=== PATIENT | male | born 1995 | race Hispanic/Latino ===

== ENCOUNTER 2018-02-17 07:20 | Emergency (ER) | payer SELFPAY ==
[2018-02-17] MEDS ORDERED: ALBUTEROL 2.5 MG/3 ML NEB SOL ONE (07:47)
[2018-02-17] MEDS ORDERED: IPRATROPIUM BROM 0.5MG/2.5ML ONE (07:47)
--- NOTE | 2018-02-17 08:35 | ER ---
Nurse's Notes [facility] Name: Naveen Brown Age: 22 yrs Sex: Male : 1995 Arrival Date: 02/17/2018 Time: 07:26 Bed 18 Private MD: None, None Diagnosis: Unspecified asthma with (acute) exacerbation Presentation: 02/17 07:31 Presenting complaint: Patient states: woke up this am with discomfort in chest and back ss with mild nausea. Pt reports that pain has eased, but is concerned if "anything is going on". Has also reportedly had congestion. Transition of care: patient was not received from another setting of care. Resp Distress? No respiratory distress is noted at this time. Onset of symptoms was February 17, 2018. Risk Assessment: Do you want to hurt yourself or someone else? Patient reports no desire to harm self or others. Initial Sepsis Screen:. Care prior to arrival: None. 07:31 Method Of Arrival: Ambulatory ss 07:31 Acuity: JEN 3 ss Historical: - Allergies: 07:33 No Known Allergies; ss - Home Meds: 07:33 Albuterol Inhl [Active]; ss - PMHx: 07:33 Asthma; ss - PSHx: 07:33 oral sx; ss - Immunization history:: Adult Immunizations up to date. - Social history:: Smoking status: Patient/guardian denies using tobacco. - Ebola Screening: : Patient denies exposure to infectious person Patient denies travel to an Ebola-affected area in the 21 days before illness onset. Screenin:35 Abuse screen: Denies threats or abuse. Nutritional screening: No deficits noted. em Tuberculosis screening: No symptoms or risk factors identified. Fall Risk None identified. Assessment: 07:35 General: Appears in no apparent distress. comfortable, Behavior is calm, cooperative, em Denies fever. Pain: Complains of pain in anterior aspect of right upper chest and anterior aspect of left upper chest Pain currently is 2 out of 10 on a pain scale. Neuro: Level of Consciousness is awake, alert, obeys commands, Oriented to person, place, time, situation. Cardiovascular: Heart tones S1 S2 present Capillary refill < 3 seconds Patient's skin is warm and dry. Respiratory: Reports shortness of breath cough that is pain with cough Airway is patent Respiratory effort is even, unlabored, Respiratory pattern is regular, symmetrical, Breath sounds with wheezes bilaterally. GI: Abdomen is Reports nausea, Patient currently denies vomiting. : No signs and/or symptoms were reported regarding the genitourinary system. Derm: Skin is intact, is healthy with good turgor, Skin is pink, warm \\T\\ dry. Musculoskeletal: Range of motion: intact in all extremities. 07:40 General: The previous assessment is accurate, call light remains within reach. . ss 08:26 Reassessment: Patient appears in no apparent distress at this time. Patient and/or em family updated on plan of care and expected duration. Pain level reassessed. Patient is alert, oriented x 3, equal unlabored respirations, skin warm/dry/pink. Patient states feeling better. Patient states symptoms have improved. Vital Signs: 07:33 Weight 72.57 kg; Height 5 ft. 7 in. (170.18 cm); ss 07:33 BP 138 / 93; Pulse 90; Resp 16; Temp 97.8(O); Pulse Ox 100% on R/A; Pain 2/10; dh3 07:33 Body Mass Index 25.06 (72.57 kg, 170.18 cm) ED Course: 07:26 Patient arrived in ED. sb2 07:27 None, None is Private Physician. sb2 07:27 Alexandra Dunn FNP-C [facility]. kb 07:27 Ken Churchill MD is Attending Physician. kb 07:32 Triage completed. ss 07:33 Arm band placed on right wrist. ss 07:34 Case Lindo LVN is Primary Nurse. em 07:35 Patient has correct armband on for positive identification. Bed in low position. Call em light in reach. Adult w/ patient. Pulse ox on. NIBP on. 07:50 EKG done, by ED staff, reviewed by Alexandra JORDAN. dh3 08:05 Chest Pa And Lat (2 Views) XRAY In Process Unspecified. EDMS 08:42 No provider procedures requiring assistance completed. Patient did not have IV access em during this emergency room visit. Administered Medications: 07:39 Drug: DuoNeb (3:1) (2.5 mg - 0.5 mg) 3 ml Route: Nebulizer; em 08:18 Follow up: Response: No adverse reaction; Wheezing diminished em Outcome: 08:34 Discharge ordered by . iraj 08:42 Discharged to home ambulatory, with family. em 08:42 Condition: good 08:42 Discharge instructions given to patient, family, Instructed on discharge instructions, follow up and referral plans. medication usage, Demonstrated understanding of instructions, follow-up care, medications, Prescriptions given X 1. 08:43 Patient left the ED. em Signatures: Dispatcher [employer] EDIN Alexandra Dunn, NICK-C POULTRY SEXER-Case Daniel, REGISTERED NURSE TEACHER REGISTERED NURSE TEACHER em Coby Elizabeth, THIAGO RN Rosie Penn 3 Renae Brennan sb2 Corrections: (The following items were deleted from the chart) 07:33 07:31 Presenting complaint: Patient states: woke up this am with discomfort in chest ss and back with mild nausea. Pt reports that pain has eased, but is concerned if "anything is going on". 08:16 07:33 BP 138 / 93; Pulse 90bpm; Resp 16bpm; Pulse Ox 100% RA; dh3 dh3
--- NOTE | 2018-02-17 08:35 | EDPHYS ---
Physician Documentation [facility] Name: Naveen Brown Age: 22 yrs Sex: Male : 1995 Arrival Date: 02/17/2018 Time: 07:26 Bed 18 Private MD: None, None ED Physician Ken Churchill HPI: 02/17 08:27 This 22 yrs old Male presents to ER via Ambulatory with complaints of kb Congestion, Shortness Of Breath. 08:27 The patient has shortness of breath at rest, and the patient has a history of asthma. kb Onset: The symptoms/episode began/occurred this morning. Duration: The symptoms are continuous. The patient's shortness of breath is aggravated by nothing, is alleviated by nothing. Associated signs and symptoms: Pertinent positives: chest pain, Pertinent negatives: non-productive cough, productive cough, fever. Severity of symptoms: At their worst the symptoms were moderate in the emergency department the symptoms have improved moderately. The patient has not experienced similar symptoms in the past. The patient has not recently seen a physician. Pt states he has had congestion for a while, but started having shortness of breath and chest pain this morning. States his girlfriend has a cat and he is allergic to cat. Allergy symptoms have been getting worse. Also reports he is out of nebulizer solution. Symptoms have been getting better since onset. Historical: - Allergies: 07:33 No Known Allergies; ss - Home Meds: 07:33 Albuterol Inhl [Active]; ss - PMHx: 07:33 Asthma; ss - PSHx: 07:33 oral sx; ss - Immunization history:: Adult Immunizations up to date. - Social history:: Smoking status: Patient/guardian denies using tobacco. - Ebola Screening: : Patient denies exposure to infectious person Patient denies travel to an Ebola-affected area in the 21 days before illness onset. ROS: 08:26 Constitutional: Negative for fever, chills, and weight loss, ENT: Negative for injury, kb pain, and discharge, Neck: Negative for injury, pain, and swelling, Abdomen/GI: Negative for abdominal pain, nausea, vomiting, diarrhea, and constipation, MS/Extremity: Negative for injury and deformity, Skin: Negative for injury, rash, and discoloration, Neuro: Negative for headache, weakness, numbness, tingling, and seizure. 08:26 Cardiovascular: Positive for chest pain. 08:26 Respiratory: Positive for cough, wheezing, Negative for dyspnea on exertion, hemoptysis, orthopnea, pleurisy, shortness of breath, sputum production. Exam: 08:26 Constitutional: This is a well developed, well nourished patient who is awake, alert, kb and in no acute distress. Head/Face: Normocephalic, atraumatic. ENT: Nares patent. No nasal discharge, no septal abnormalities noted. Tympanic membranes are normal and external auditory canals are clear. Oropharynx with no redness, swelling, or masses, exudates, or evidence of obstruction, uvula midline. Mucous membranes moist. Neck: Trachea midline, no thyromegaly or masses palpated, and no cervical lymphadenopathy. Supple, full range of motion without nuchal rigidity, or vertebral point tenderness. No Meningismus. Chest/axilla: Normal chest wall appearance and motion. Nontender with no deformity. No lesions are appreciated. Cardiovascular: Regular rate and rhythm with a normal S1 and S2. No gallops, murmurs, or rubs. Normal PMI, no JVD. No pulse deficits. Abdomen/GI: Soft, non-tender, with normal bowel sounds. No distension or tympany. No guarding or rebound. No evidence of tenderness throughout. Skin: Warm, dry with normal turgor. Normal color with no rashes, no lesions, and no evidence of cellulitis. MS/ Extremity: Pulses equal, no cyanosis. Neurovascular intact. Full, normal range of motion. Neuro: Awake and alert, GCS 15, oriented to person, place, time, and situation. Cranial nerves II-XII grossly intact. Motor strength 5/5 in all extremities. Sensory grossly intact. Cerebellar exam normal. Normal gait. 08:26 Respiratory: the patient does not display signs of respiratory distress, Respirations: normal, Breath sounds: wheezing: expiratory that is mild, is scattered. Vital Signs: 07:33 Weight 72.57 kg; Height 5 ft. 7 in. (170.18 cm); ss 07:33 BP 138 / 93; Pulse 90; Resp 16; Temp 97.8(O); Pulse Ox 100% on R/A; Pain 2/10; dh3 07:33 Body Mass Index 25.06 (72.57 kg, 170.18 cm) ss MDM: 07:29 Patient medically screened. kb 08:25 Data reviewed: vital signs, nurses notes. Data interpreted: Pulse oximetry: on room air kb is 100 %. Interpretation: normal. Counseling: I had a detailed discussion with the patient and/or guardian regarding: the historical points, exam findings, and any diagnostic results supporting the discharge/admit diagnosis, radiology results, the need for outpatient follow up, a family practitioner, to return to the emergency department if symptoms worsen or persist or if there are any questions or concerns that arise at home. 08:31 ED course: Pt reports he is feeling better after treatment. States he still has some kb chest pain. Offered to do labs, but pt opted not to have them done. Will return for worsening symptoms. Father now present and reports they were cleaning the outside of the house a couple of days ago and he had the same pain due to repetitive motion of arms up and down. "We used muscles that we normally don't.". 02/17 07:33 Order name: Chest Pa And Lat (2 Views) XRAY kb 02/17 07:33 Order name: EKG; Complete Time: 07:34 kb 02/17 07:33 Order name: EKG - Nurse/Tech; Complete Time: 07:50 kb Administered Medications: 07:39 Drug: DuoNeb (3:1) (2.5 mg - 0.5 mg) 3 ml Route: Nebulizer; em 08:18 Follow up: Response: No adverse reaction; Wheezing diminished em Disposition: 02/17/18 08:34 Discharged to Home. Impression: Unspecified asthma with (acute) exacerbation. - Condition is Stable. - Discharge Instructions: Asthma, Adult, [id number]. - Prescriptions for Albuterol Sulfate 2.5 mg /3 mL (0.083 %) Inhalation Solution for Nebulization - inhale 1 unit by NEBULIZATION route every 8 hours As needed; 1 box. - Medication Reconciliation Form, Thank You Letter, Antibiotic Education, Prescription Opioid Use form. - Follow up: Emergency Department; When: As needed; Reason: Worsening of condition. Follow up: Private Physician; When: 2 - 3 days; Reason: Recheck today's complaints, Continuance of care, Re-evaluation by your physician. Addendum: 02/19/2018 10:20 Co-signature as Attending Physician, Ken Churchill MD. g s Signatures: Dispatcher [employer] EDAlexandra Catherine, BEHAVIOR INTERVENTIONIST-C BEHAVIOR INTERVENTIONIST-Ckb Case Lindo, CARBONIZER CARBONIZER Coby Lovelace, THIAGO RN Ken Lambert MD MD Corrections: (The following items were deleted from the chart) 02/17 08:43 08:34 02/17/2018 08:34 Discharged to Home. Impression: Unspecified asthma with (acute) em exacerbation. Condition is Stable. Forms are Medication Reconciliation Form, Thank You Letter, Antibiotic Education, Prescription Opioid Use. Follow up: Emergency Department; When: As needed; Reason: Worsening of condition. Follow up: Private Physician; When: 2 - 3 days; Reason: Recheck today's complaints, Continuance of care, Re-evaluation by your physician. kb
--- NOTE | 2018-02-17 10:56 | RAD REPORT ---
EXAM DESCRIPTION: RAD - Chest Pa And Lat (2 Views) - 02/17/2018 8:05 am CLINICAL HISTORY: DYSPNEA Chest pain. COMPARISON: No comparisons FINDINGS: Poorly defined left basilar lung markings are seen extending posteriorly, suspicious for d eveloping pneumonia. The heart is normal in size. No displaced fractures. IMPRESSION: Developing medial left lung base pneumonia is possible.
--- NOTE | 2018-02-17 16:26 | EKG ---
Test Date: 2018-02-17 Test Time: 07:43:20 Chemicals Fermentation Operator: KAVON MEASUREMENT RESULTS: Intervals: Rate: 93 [place]: 168 QRSD: 86 QT: 318 QTc: 395 [place]: P: 36 [place]: 168 QRS: 34 T: 32 INTERPRETIVE STATEMENTS: Normal sinus rhythm with sinus arrhythmia Normal ECG No previous ECG available for comparison Electronically Signed On 02-17-18 16:25:39 [employer] MEMBER by Julio Cole
== END 2018-02-17 08:43 | disposition home or self-care (01) ==
LOC: ER 07:20
DX: J45.909 Unspecified asthma, uncomplicated (principal)
CPT/HCPCS: 71046; 93005; 94640; 99284

== ENCOUNTER 2021-05-24 00:09 | Emergency (ER) | payer OTHER, SELFPAY ==
--- OUTSIDE RECORDS SUMMARY | 2021-05-24 00:11 | XMS REPORT | Continuity of Care Document ---
:1995 Author Organization [facility] t Address [address] [place] [address] [address] [place] [address] Care Team Providers Name Role Phone PCP, DOES NOT HAVE A Primary Care Physician Unavailable Gisella DAS Attending Clinician Unavailable Only, Db Test Attending Clinician Unavailable Suman ROMERO Attending Clinician SUMAN Attending Clinician Unavailable Doctor Unassigned, Name Attending Clinician Unavailable Payers Payer Name Policy Type Policy Number Effective Date Expiration Date S ource Problems This patient has no known problems. Allergies, Adverse Reactions, Alerts Allergy Allergy Status Severity Reaction(s) Onset Inactive Treating Comm ents Source Name Type Date Date Clinician NO KNOWN Drug Active [facility] ALLERGIE Class [facility] Social History Social Habit Start Date Stop Date Quantity Comments Source Exposure to Yes [facility] SARS-CoV-2 (event) Medica l Branch Sex Assigned At [birth year] [facility] 00:00:00 00:00:00 [facility] Smoking Status Start Date Stop Date Source Unknown if ever smoked [facility] Medications This patient has no known medications. Procedures Procedure Date / Time Performed Performing Clinician Reinaldo e ASSIGNMENT OF BENEFITS 2021-02-10 21:43:22 Doctor Unassigned, No [facility] Encounters Start End Encounter Admission Attending Care Care Encounter Source Date/Time Date/Time Type Type Clinicians Facility Department ID 2021-02-12 2021-02-12 Telephone VAN [place] [id number] [facility] 00:00:00 00:00:00 Amina ROB [id number] [facility] [id number] Jaguar as [id number] [place] [address] Branch 2021-02-10 2021-02-10 Laboratory Only, Ang Db Test [facility] [id number] Univers 15:45:00 16:00:00 Only Suman Mark [facility] [id number] [facility] [id number] Jaguar as JENN?BLEA [phone] Nm dical [address] MEDICAL OFFICE BUILDING 2021-02-10 2021-02-10 Outpatient R SUMAN [facility] [id number] Univers 15:45:00 15:59:17 MARK ity of [facility] 2021-02-10 2021-02-10 Letter Doctor VAN [id number] Univers 00:00:00 00:00:00 (Out) Unassigned, DARRON [id number] ity of [facility] [id number] Jaguar as [phone] [facility] 044 Branch 2021-02-10 2021-02-10 Orders Doctor VAN [id number] Univers 00:00:00 00:00:00 Only Unassigned, DARRON [id number] ity of [facility] [id number] Jaguar as [id number] [facility] 009 Branch Results This patient has no known results.
[2021-05-24 01:26] LABS: Urine Blood Negative (Negative); Urine Glucose Negative (Negative); Urine Protein Trace (Negative); Urine Specific Gravity >=1.030 (1.005-1.030)
[2021-05-24 01:43] LABS: Absolute Lymphocytes (CBC) 1.8 K/uL (0.7-4.9); Hematocrit 43.6 % (39.6-49.0); Lymphocytes % 18.9 % (15.3-44.8); MPV 8.9 fL (7.6-11.3); RBC Red Blood Cell Count 5.02 M/uL (4.33-5.43)
[2021-05-24 02:27] LABS: ALT/SGPT 37 U/L (12-78); AST/SGOT 22 U/L (15-37); Albumin 4.4 g/dL (3.4-5.0); Alkaline Phosphatase 74 U/L (45-117); BUN Blood Urea Nitrogen 14 mg/dL (7-18); Bicarbonate 27 mmol/L (21-32); Bilirubin Direct 0.1 mg/dL (0-0.2); Bilirubin Total 0.4 mg/dL (0.2-1.0); Glucose Level 96 mg/dL (74-106); Potassium 3.6 mmol/L (3.5-5.1); Sodium Level 140 mmol/L (136-145)
[2021-05-24 02:55] LABS: SARS-COV-2 RT PCR NEGATIVE (NEGATIVE)
[2021-05-24 03:57] LABS: Barbiturates NEGATIVE (NEGATIVE); Benzodiazepines NEGATIVE (NEGATIVE); Cocaine NEGATIVE (NEGATIVE); METHAMPHETAM NEGATIVE (NEGATIVE); Methadone NEGATIVE (NEGATIVE); Opiates NEGATIVE (NEGATIVE); Phencyclidine NEGATIVE (NEGATIVE); THC Cannibis NEGATIVE (NEGATIVE)
--- NOTE | 2021-05-24 08:59 | EKG ---
Test Date: 2021-05-24 Test Time: 01:13:17 Oxygen Therapy Teacher: JUDITH MEASUREMENT RESULTS: Intervals: Rate: 79 MD: 176 QRSD: 88 QT: 332 QTc: 380 [place]: P: 35 MD: 176 QRS: 12 T: 29 INTERPRETIVE STATEMENTS: Normal sinus rhythm Normal ECG Compared to ECG 02/17/2018 07:43:20 Sinus arrhythmia no longer present Electronically Signed On 05-24-21 08:58:11 CDT by Jesse Laurent
--- NOTE | 2021-05-24 12:54 | ER ---
Nurse's Notes [facility] Name: Naveen Brown Age: 25 yrs Sex: Male : 1995 Arrival Date: 05/24/2021 Time: 00:20 Bed 14 Private MD: Diagnosis: Suicidal ideations Presentation: 05/24 00:30 Chief complaint: EMS states: EMS toned out for suicidal ideations, pt states they ll3 reconnected with their boyfriend yesterday and hung out all day then today the friend would not respond to calls or text messages. Pt states was planning on taking a combination of pills but called the suicide hot line and the police and EMS were called, denies taking any medication. 00:30 Coronavirus screen: Vaccine status: Patient reports receiving the 2nd dose of the covid ll3 vaccine. At this time, the client does not indicate any symptoms associated with coronavirus-19. Ebola Screen: No symptoms or risks identified at this time. Initial Sepsis Screen: Does the patient meet any 2 criteria? No. Patient's initial sepsis screen is negative. Does the patient have a suspected source of infection? No. Patient's initial sepsis screen is negative. Risk Assessment: Do you want to hurt yourself or someone else? Patient reports desire/thoughts of hurting themselves or someone else. Provider notified. Onset of symptoms was May 23, 2021. 00:30 Method Of Arrival: EMS: [facility] 01:18 Acuity: JEN 2 bb Triage Assessment: 00:30 General: Appears comfortable, Behavior is cooperative, anxious. Pain: Denies pain. ll3 Neuro: Level of Consciousness is awake, alert, obeys commands, Oriented to person, place, time, situation. Neuro: Reports Feeling suicidal . Respiratory: Respiratory effort is even, unlabored, Respiratory pattern is regular, symmetrical. Derm: Skin is pink, warm \\T\\ dry. Historical: - Allergies: 01:36 No Known Allergies; ll3 - Immunization history:: Client reports receiving the Napoleon \\T\\ Napoleon single-dose vaccine. - Social history:: Smoking status: Reported history of juuling and/or vaping. Screenin:30 Abuse screen: Denies threats or abuse. Nutritional screening: No deficits noted. ll3 Tuberculosis screening: No symptoms or risk factors identified. Fall Risk None identified. Assessment: 00:30 General: See triage assessment.. ll3 01:30 Reassessment: No changes from previously documented assessment. Patient and/or family ll3 updated on plan of care and expected duration. Pain level reassessed. Patient is alert, oriented x 3, equal unlabored respirations, skin warm/dry/pink. Patient denies pain at this time. 03:00 Reassessment: No changes from previously documented assessment. Patient and/or family ll3 updated on plan of care and expected duration. Pain level reassessed. Patient is alert, oriented x 3, equal unlabored respirations, skin warm/dry/pink. Patient denies pain at this time. 04:30 Reassessment: No changes from previously documented assessment. Patient and/or family ll3 updated on plan of care and expected duration. Pain level reassessed. Patient is alert, oriented x 3, equal unlabored respirations, skin warm/dry/pink. 05:15 Reassessment: Pt is speaking with [facility]. ll3 06:49 Reassessment: No changes from previously documented assessment. Patient and/or family ll3 updated on plan of care and expected duration. Pain level reassessed. Patient is alert, oriented x 3, equal unlabored respirations, skin warm/dry/pink. PTs uncle at bedside. 07:00 Reassessment: patient care assumed from police shift commander RN. ll1 07:15 General: Appears in no apparent distress. Behavior is calm, cooperative, appropriate ll1 for age. General: No homicidal or suicidal thoughts at this time.. Pain: Denies pain. Neuro: No deficits noted. Cardiovascular: No deficits noted. Respiratory: No deficits noted. 07:18 Reassessment: Nurse with [facility] called stating that they do not have an ss available bed for this patient at this time, but will remain on a wait list for 24 hours. 08:00 Reassessment: No changes from previously documented assessment. Patient and/or family ll1 updated on plan of care and expected duration. Pain level reassessed. Patient is alert, oriented x 3, equal unlabored respirations, skin warm/dry/pink. 09:00 Reassessment: No changes from previously documented assessment. Patient and/or family ll1 updated on plan of care and expected duration. Pain level reassessed. Patient is alert, oriented x 3, equal unlabored respirations, skin warm/dry/pink. 10:00 Reassessment: No changes from previously documented assessment. Patient and/or family ll1 updated on plan of care and expected duration. Pain level reassessed. Patient is alert, oriented x 3, equal unlabored respirations, skin warm/dry/pink. 11:00 Reassessment: No changes from previously documented assessment. Patient and/or family ll1 updated on plan of care and expected duration. Pain level reassessed. Patient is alert, oriented x 3, equal unlabored respirations, skin warm/dry/pink. 12:00 Reassessment: No changes from previously documented assessment. Patient and/or family ll1 updated on plan of care and expected duration. Pain level reassessed. Patient is alert, oriented x 3, equal unlabored respirations, skin warm/dry/pink. Psych: 10:49 [place] Suicide Severity Screening: In the past month, have you wished you were ll1 or wished you could go to sleep and not wake up? Patient responds "No." "In the past month, have you actually had any thoughts of killing yourself?" Patient responds "no." "In your lifetime, have you ever done anything, started to do anything, or prepared to do anything to end your life?" Patient responds "yes.". Safety Checks: Personal items have been removed. Pt has been placed in a hallway bed/chair. Visitors are present. Pt denies substance abuse. 12:53 Subjective: Patient's mood is sad. Objective: Speech is normal. Interventions: Patient ll1 placed in hospital gown. Searched person for dangerous items. Belonging list filled out. Commitment: Patient will be a voluntary commitment. Vital Signs: 01:01 BP 131 / 95; Pulse 88; Resp 18; Temp 97.5(T); Pulse Ox 99% on R/A; Weight 74.84 kg; oe Height 5 ft. 6 in. (167.64 cm); 05:33 BP 126 / 76; Pulse 63; Resp 18; Pulse Ox 99% on R/A; oe 07:54 BP 126 / 69; Pulse 76; Resp 16; Temp 97.2(TE); Pulse Ox 99% on R/A; mh5 01:01 Body Mass Index 26.63 (74.84 kg, 167.64 cm) oe ED Course: 00:20 Patient arrived in ED. mw2 00:29 Alfred Hernandez MD is Attending Physician. kdr 00:30 Arm band placed on. EKG completed in triage. Results shown to MD. ll3 00:30 Patient has correct armband on for positive identification. Placed in gown. Bed in low ll3 position. Side rails up X 1. 01:18 Triage completed. bb 01:32 Aspen Red, RN is Primary Nurse. ll3 04:16 contacted [facility] Crisis Line spoke to Susan to have a screener evaluate the mw2 patient. 05:06 patient on the phone with Carrillo from [facility]. mw2 05:59 faxed patient information to all available psych facilities. mw2 07:11 Fariha Dugan, RN is Primary Nurse. ll1 09:18 faxed chart to [facility]. bd 09:49 faxed chart to [facility]. bd 11:55 pt accepted in transfer to [facility] by dr Miller. bd 12:38 No provider procedures requiring assistance completed. Patient did not have IV access ll1 during this emergency room visit. Administered Medications: No medications were administered Outcome: 12:53 ER care complete, transfer ordered by . ma2 12:54 Transferred by ground EMS to [facility]. ll1 12:54 Condition: stable 12:54 Instructed on the need for transfer. ll1 12:55 Patient left the ED. ll1 Signatures: Megan Chamorro Kevin, MD MD kdr Ballard, Brenda, RN RN bb Smirch, Shelby, RN RN Mathieu Fiore Maria [facility] Neeraj Banks MD MD vaSofia Wolff 2 Fariha Dugan RN RN ll1 Aspen Red RN RN ll3
--- NOTE | 2021-05-24 12:54 | EDPHYS ---
Physician Documentation [facility] Name: Naveen Brown Age: 25 yrs Sex: Male : 1995 Arrival Date: 05/24/2021 Time: 00:20 Bed 14 Private MD: ED Physician Alfred Hernandez HPI: 05/24 08:32 This 25 yrs old Male presents to ER via EMS with complaints of Suicidal kdr Ideation. 08:32 The patient presents to the emergency department with anxiety, depression, over unknown kdr circumstances. Onset: The symptoms/episode began/occurred at an unknown time. Past psychiatric history: Prior diagnosis: bipolar disorder. Severity of symptoms: At their worst the symptoms were mild moderate in the emergency department the symptoms are unchanged. The patient has not recently seen a physician. EMS was called for suicidal ideations. Patient has a history of suicide ideations and attempts. He is attempted drownings previously and overdoses. Most recently in the last few days he has had relationship issues which have prompted him him to become suicidal again. Apparently his significant other was not responding to his calls or text messages which I asked the patient to start thinking about suicide again. He was in fact planning on taking some pills but in the interim had called the suicide hotline and the police then were summoned and they were followed by EMS. Currently he denies taking any medication.. Historical: - Allergies: 01:36 No Known Allergies; ll3 - Immunization history:: Client reports receiving the Napoleon \\T\\ Napoleon single-dose vaccine. - Social history:: Smoking status: Reported history of juuling and/or vaping. ROS: 08:33 Constitutional: Negative for fever, chills, and weight loss, Eyes: Negative for injury, kdr pain, redness, and discharge, Neck: Negative for injury, pain, and swelling, Cardiovascular: Negative for chest pain, palpitations, and edema, Respiratory: Negative for shortness of breath, cough, wheezing, and pleuritic chest pain, Abdomen/GI: Negative for abdominal pain, nausea, vomiting, diarrhea, and constipation, Back: Negative for injury and pain, : Negative for injury, bleeding, discharge, and swelling, MS/Extremity: Negative for injury and deformity, Skin: Negative for injury, rash, and discoloration, Neuro: Negative for headache, weakness, numbness, tingling, and seizure activity. Allergy/Immunology: Negative for hives, rash, and allergies, Endocrine: Negative for neck swelling, polydipsia, polyuria, polyphagia, and marked weight changes, Hematologic/Lymphatic: Negative for swollen nodes, abnormal bleeding, and unusual bruising. 08:33 Psych: Positive for anxiety, depression, insomnia. Exam: 01:22 ECG was reviewed by the Attending Physician. kdr 12:53 Constitutional: This is a well developed, well nourished patient who is awake, alert, ma2 and in no acute distress. Head/Face: Normocephalic, atraumatic. Eyes: Pupils equal round and reactive to light, extra-ocular motions intact. Lids and lashes normal. Conjunctiva and sclera are non-icteric and not injected. Cornea within normal limits. Periorbital areas with no swelling, redness, or edema. ENT: Nares patent. No nasal discharge, no septal abnormalities noted. Tympanic membranes are normal and external auditory canals are clear. Oropharynx with no redness, swelling, or masses, exudates, or evidence of obstruction, uvula midline. Mucous membranes moist. Neck: Trachea midline, no thyromegaly or masses palpated, and no cervical lymphadenopathy. Supple, full range of motion without nuchal rigidity, or vertebral point tenderness. No Meningismus. Vital Signs: 01:01 BP 131 / 95; Pulse 88; Resp 18; Temp 97.5(T); Pulse Ox 99% on R/A; Weight 74.84 kg; oe Height 5 ft. 6 in. (167.64 cm); 05:33 BP 126 / 76; Pulse 63; Resp 18; Pulse Ox 99% on R/A; oe 07:54 BP 126 / 69; Pulse 76; Resp 16; Temp 97.2(TE); Pulse Ox 99% on R/A; mh5 01:01 Body Mass Index 26.63 (74.84 kg, 167.64 cm) oe MDM: 05:30 ED course: [place] a with the patient and felt that he was a candidate for inpatient kdr evaluation and treatment. He has a significant familial history of psychiatric disorders and has had his own episodes of suicidal ideation and suicide attempts. These have included overdoses and potential self drowning. Most recently he has had relationship issues in the last few days which have exacerbated his circumstances and his depression.. 12:53 Data reviewed: vital signs, nurses notes. ma2 12:53 Patient medically screened. ma2 05/24 00:32 Order name: Acetaminophen [facility] 05/24 00:32 Order name: Basic Metabolic Panel [facility] 05/24 00:32 Order name: CBC with Diff [facility] 05/24 00:32 Order name: ETOH Level [facility] 05/24 00:32 Order name: Hepatic Function [facility] 05/24 00:32 Order name: Salicylate [facility] 05/24 00:32 Order name: Urine Drug Screen [facility] 05/24 00:32 Order name: EKG; Complete Time: 00:33 kdr 05/24 00:35 Order name: COVID-19/FLU A+B (Document "Date of Onset" if Symptomatic) 2 05/24 01:26 Order name: Urine Dipstick-Ancillary [facility] 05/24 07:12 Order name: Diet Finger Food; Complete Time: 07:12 [facility] 05/24 11:24 Order name: Diet Finger Food; Complete Time: 11:25 [facility] 05/24 00:32 Order name: EKG - Nurse/Tech; Complete Time: 01:32 [facility] 05/24 00:32 Order name: Labs collected and sent; Complete Time: 01:32 [facility] 05/24 00:32 Order name: Suicide Screening ([place]); Complete Time: 01: [facility] 05/24 00:32 Order name: Urine Dipstick-Ancillary (obtain specimen); Complete Time: 01:32 [facility] EC:22 Rate is 79 beats/min. Rhythm is regular, Normal Sinus Rhythm with No ectopy. QRS [place] kdr is Normal. AL interval is normal. QRS interval is normal. QT interval is normal. Clinical impression: Normal ECG. Administered Medications: No medications were administered Disposition Summary: 05/24/21 12:53 Transfer Ordered Transfer Location: Other Acute Care Facility ma2 Reason: Higher level of care ma2 Condition: Stable ma2 Problem: new ma2 Symptoms: are unchanged ma2 Accepting Physician: jefry(05/24/21 12:55) ll1 Diagnosis - Suicidal ideations ma2 Forms: - Medication Reconciliation Form ma2 - SBAR form ma2 Signatures: Dispatcher [employer] EDMI Alfred Hernandez MD MD kdr Neeraj Banks MD MD ma2 Fariha Dugan RN RN ll1 Loubet, Lynsea, RN RN ll3 Corrections: (The following items were deleted from the chart) 01:32 00:32 IV Saline Lock ordered. kdr ll3 05:33 00:33 PROTIME (+INR)+COAG.LAB.BRZ ordered. EDMS EDMS 05:33 00:33 PTT, ACTIVATED+COAG.LAB.BRZ ordered. EDMS EDMS 12:55 12:53 [facility]2 ll1
[2021-05-24 16:46] VITALS: O2SAT 99
[2021-05-24 16:49] VITALS: BP 126/69; TEMP 97.2
== END 2021-05-24 12:55 ==
LOC: ER 00:09
DX: R45.851 Suicidal ideations (principal); F31.9 Bipolar disorder, unspecified; Z20.822 Contact with and (suspected) exposure to COVID-19
CPT/HCPCS: 93005; 85025; 80048; 36415; 80320; 80329 ×2; 80076; 81003; 0240U; 80307; 99285